=== PATIENT | male | born 1970 | race Caucasian/White ===

== ENCOUNTER 2022-12-03 17:35 | Emergency (ER) | payer OTHER, SELFPAY ==
[2022-12-03 17:36] VITALS: BP 173/98; PULSE 88; RESP 17; TEMP 36.6; O2SAT 92; BMI 30.7
--- NOTE | 2022-12-03 17:52 | CTR_ITS ---
PROCEDURE INFORMATION: Exam: CT Head Without Contrast Exam date and time: 12/03/2022 6:39 PM Age: 52 years old Clinical indication: Stroke-like symptoms; Dizziness/giddiness; Additional info: Neck pain, dizziness TECHNIQUE: Imaging protocol: Computed tomography of the head without contrast. Radiation optimization: All CT scans at this facility use at least one of these dose optimization techniques: automated exposure control; mA and/or kV adjustment per patient size (includes targeted exams where dose is matched to clinical indication); or iterative reconstruction. Other technique: STROKE PROTOCOL was implemented. REPORTING DATA: Count of CT and Cardiac NM exams in prior 12 months: This patient has received 0 known CTs and 0 known cardiac nuclear medicine studies in the 12 months prior to the current study. COMPARISON: No relevant prior studies available. RADIATION DOSE METRICS: Total DLP (mGy-cm): 1393 FINDINGS: Brain: Mild diffuse cortical volume loss. Mild hypodensities in supratentorial periventricular and subcortical white matter, consistent with microangiopathy. No intracranial hemorrhage. Cerebral ventricles: No ventriculomegaly. Paranasal sinuses: Visualized sinuses are unremarkable. No fluid levels. Mastoid air cells: Visualized mastoid air cells are well aerated. Bones/joints: Unremarkable. No acute fracture. Soft tissues: Unremarkable. Vasculature: No hyperdense artery. CT/CT head wo con* [id number] IMPRESSION: No acute intracranial abnormality. ASSESSMENT: ASPECTS ([place] [facility] Stroke Program Early CT Score) is 10.
--- NOTE | 2022-12-03 17:55 | ECG_ITS ---
[facility] Test Date: 2022-12-03 Pat Name: Sreekanth Madden Department: Room: Gender: Male Social Work Supervisor: : 1970 Requested By: Vikas Gonzalez Order Number: [id number] Monica MD: Kayla Castellanos M.D. Measurements Intervals [place] Rate: 83 P: 39 LA: 151 QRS: 11 QRSD: 110 T: 34 QT: 375 QTc: 443 Interpretive Statements SINUS RHYTHM No previous ECG available for comparison Electronically Signed On 12-04-2022 8:00:53 CDT by Kayla Castellanos M.D. [id number]
[2022-12-03 18:06] LABS: Glucose Point of Care 250 mg/dL (70-110)
[2022-12-03 18:12] VITALS: BP 161/94; PULSE 84; RESP 21; O2SAT 93
[2022-12-03 18:28] LABS: Add Urine Culture? Yes; Add Urine Microscopic? YES; Amphetamines Screen Urine Negative (Negative); Bacteria Urine 3+ /hpf; Barbiturates Screen Urine Negative (Negative); Benzodiazepines Screen Urine Negative (Negative); Bilirubin Urine Neg (Negative); Blood Urine Neg (Negative); Cocaine Screen Urine Negative (Negative); Glucose Urine UA 4+ (Normal); Ketones Urine Negative (Negative); Leukocyte Esterase Urine Negative (Negative); Nitrate Urine Negative (Negative); Opiate Screen Urine Negative (Negative); PCP Screen Urine Negative (Negative); Protein Urine Neg (Negative); RBC Urine 0-4 /hpf (0-2); Squamous Epithelial Cell Urine 0-4 /hpf (0-5); Sulfosalicylic Acid Urine Negative (Negative); THC Screen Urine Negative (Negative); Urine Appearance Hazy (CLEAR); Urine Color Yellow (Yellow); Urobilinogen Urine Norm (Negative); WBC Urine 0-4 /hpf (0-5); pH Urine 8 (5-7)
[2022-12-03 18:35] LABS: Basophils # 0.1 10^3/uL (0.0-0.1); Basophils % 1.5 %; Eosinophils # 0.7 10^3/uL (0.0-0.8); Eosinophils % 7.7 %; Hematocrit 39.2 % (37-53); Lymphocytes # 3.5 10^3/uL (0.8-4.8); Mean Corpuscular HGB Conc 35.2 g/dL (30-55); Mean Corpuscular Hemoglobin 32.2 pg (27-33); Mean Corpuscular Volume 91.6 fl (82-101); Mean Platelet Volume 10.3 fL (7.4-10.4); Monocytes # 1.1 10^3/uL (0.2-0.9); Monocytes % 12.6 %; Neutrophils # 3.45 10^3/uL (1.8-7.7); Neutrophils % 38.6 %; Nucleated Red Blood Cells % 0 %; Platelet Count 308 10^3/cmm (157-399); Red Blood Count 4.28 10^6/uL (3.85-5.65); Red Cell Distribution Width 12.8 % (12.1-15.1); White Blood Count 8.92 10^3/uL (3.29-11.43)
[2022-12-03 18:41] LABS: INR 0.86 (0.8-1.2)
--- NOTE | 2022-12-03 18:41 | W.ED.DIZZY ---
HPI - Dizziness General: Chief Complaint: Dizziness Stated Complaint: N/V Time Seen by Provider: 12/03/22 17:37 History of Present Illness: HPI Narrative: 52-year-old male gentleman with a history of hypertension. [place]. He presents with a history of an hour prior to arrival onset of sharp searing pain to the base of his head posteriorly. He says this lasted about 3 minutes, and was quite intense. It is now only a dull ache. However after the pain subsided, he began to get quite dizzy. It is a vertiginous type dizziness. He states with it when he stood up, he began to vomit profusely. He vomited several times prior to EMS arrival. He has not been ill otherwise recently. Associated symptoms: Reports headache(s), nausea and vomiting; Denies chest pain, chills or palpitations Associated neuro symptoms: Deny confusion Review of Systems Const: Denies: fever(s), chills or body aches Eyes: Denies: change in vision Card: Denies: chest pain or palpitations Resp: Denies: dyspnea, productive cough, non-productive cough or wheezing GI: Reports: nausea and vomiting; Denies: abdominal pain, diarrhea or hematochezia Skin/Breast: Denies: rash Neuro: Reports: headache(s), dizziness and vertigo; Denies: weakness in extremities, sensory changes, confusion, Slurred speech present or difficulty communicating thoughts Physical Exam Const: GENERAL APPEARANCE: cooperative and ill appearing; not frail appearing HENMT: COMMON NORMALS: normocephalic, atraumatic and Normal external nose present HEAD & SCALP: normocephalic and atraumatic FACE & SINUS: normal facial exam and face symmetric NOSE: Normal external nose present Eye: COMMON NORMALS: Equal, round and reactive pupils present and EOMs intact bilaterally PUPIL: Yes Equal, round and reactive pupils present Neck/C-Spine: GENERAL: Yes trachea midline Chest: CHEST: Yes Symmetrical chest wall rise Resp: COMMON NORMALS: normal respiratory effort, No retractions, No use of accessory muscles and clear to auscultation bilaterally AUSCULTATION: clear to auscultation bilaterally Cardio: COMMON NORMALS: regular rate and regular rhythm RATE: regular rate RHYTHM: regular rhythm GI: COMMON NORMALS: Normal to inspection, nondistended, normoactive bowel sounds present Extremity: COMMON NORMALS: no pedal edema Neuro: ALICE COMA SCALE: document GCS findings [place] coma scale eye opening: Spontaneous [place] coma scale verbal response: Orientated [place] coma scale motor response: Obey commands [place] coma scale total score: 15 CRANIAL NERVES: Yes CN normal except as noted COORDINATION/BALANCE: iccwby-ji-[id number] test normal and rner-lf-kavt test normal SPEECH: speech normal SENSORY EXAM: Yes extremities (intact) MOTOR EXAM: Pronator motor function not present and no tremor noted COORDINATION: iafukl-hh-rqlr test normal and hfuj-jk-uani test normal Psych: COMMON NORMALS: speech normal SPEECH: Yes normal speech Skin: COMMON NORMALS: no rashes or lesions noted GENERAL SKIN EXAM: no rashes or lesions noted Course Vital Signs: Vital signs: Vital Signs Temperature 97.9 F 12/03/22 17:36 Pulse Rate 83 12/03/22 20:04 Respiratory Rate 20 H 12/03/22 20:04 Blood Pressure 144/86 12/03/22 20:04 Pulse Oximetry 94 12/03/22 20:04 Oxygen Delivery Me thod Room Air 12/03/22 19:00 MDM - Dizziness Medical Decision Making Patient presents with sudden onset head/neck pain, and dizziness. Exam findings are concerning for something such as a vertebral artery dissection, although cerebral hemorrhage could cause similar presentation. His NIH stroke scale is a 0. He has no other neurological involvement. No vision changes, language problems, weakness, numbness, etc. I spoke with our neurologist. CTA was suggested after noncontrast CT, but the patient has severe contrast allergy, requiring resuscitation on 2 separate episodes. We have no availability of MRI at this facility. Awaiting official results for noncontrast CT head. Patient has received 4 morphine and 4 Zofran for pain and nausea. His blood pressure is currently 158 systolic. I was able to speak with our counterparts at [facility] in [facility]. They are willing to take in transfer for further imaging. We are especially worried about vertebral artery dissection. Non contrast head CT was read as normal. He is stable for transfer currently. Lab Data 12/03/22 18:00 12/03/22 18:[address] 12/03/22 17:52 IMPRESSION: No acute intracranial abnormality. ASSESSMENT: ASPECTS ([place] Stroke Program Early CT Score) is 10. Laboratory Results WBC 8.92 10^3/uL (3.29-11.43) 12/03/22 18:00 RBC 4.28 10^6/uL (3.85-5.65) 12/03/22 18:00 Hgb 13.80 g/dL (11.27-16.99) 12/03/22 18:00 Hct 39.2 % (37-53) 12/03/22 18:00 MCV 91.6 fl (82-101) 12/03/22 18:00 MCH 32.2 pg (27-33) 12/03/22 18:00 MCHC 35.2 g/dL (30-55) 12/03/22 18:00 RDW 12.8 % (12.1-15.1) 12/03/22 18:00 Plt Count 308 10^3/cmm (157-399) 12/03/22 18:00 MPV 10.3 fL (7.4-10.4) 12/03/22 18:00 Neut % (Auto) 38.6 % 12/03/22 18:00 Lymph % (Auto) 39.0 % 12/03/22 18:00 [place] % (Auto) 12.6 % 12/03/22 18:00 Eos % (Auto) 7.7 % 12/03/22 18:00 Baso % (Auto) 1.5 % 12/03/22 18:00 Neut # (Auto) 3.45 10^3/uL (1.8-7.7) 12/03/22 18:00 Lymph # (Auto) 3.5 10^3/uL (0.8-4.8) 12/03/22 18:00 [place] # (Auto) 1.1 10^3/uL (0.2-0.9) H 12/03/22 18:00 Eos # (Auto) 0.7 10^3/uL (0.0-0.8) 12/03/22 18:00 Baso # (Auto) 0.1 10^3/uL (0.0-0.1) 12/03/22 18:00 Nucleated RBC % (auto) 0 % 12/03/22 18:00 Nucleated RBCs # 0.0 /100WBC 12/03/22 18:00 PT 12.00 SECONDS (12.1-14.9) L 12/03/22 18:00 INR 0.86 (0.8-1.2) 12/03/22 18:00 APTT 22.9 SECONDS (23.9-36.7) L 12/03/22 18:00 Sodium 138 mmol/L (136-145) 12/03/22 18:00 Potassium 3.6 mmol/L (3.5-5.1) 12/03/22 18:00 Chloride 96 mmol/L (98-107) L 12/03/22 18:00 Carbon Dioxide 29 mmol/L (22-29) 12/03/22 18:00 Anion Gap 16.6 (5-19) 12/03/22 18:00 BUN 16 mg/dL (6-20) 12/03/22 18:00 Creatinine 1.2 mg/dL (0.7-1.2) 12/03/22 18:00 GFR Calculation 63.1 mL/min (90-130) L 12/03/22 18:00 Glucose 259 mg/dL (65-115) H 12/03/22 18:00 POC Glucose 250 mg/dL (70-110) H 12/03/22 18:03 Calculated Osmolality 296 mOsm/kg (285-295) H 12/03/22 18:00 Calcium 10.0 mg/dL (8.5-10.5) 12/03/22 18:00 Total Bilirubin 0.3 mg/dL (0.15-1.2) 12/03/22 18:00 AST 25 U/L (0-40) 12/03/22 18:00 ALT 31 U/L (0-41) 12/03/22 18:00 Alkaline Phosphatase 48 U/L (40-130) 12/03/22 18:00 Total Protein 8.3 g/dL (6.6-8.7) 12/03/22 18:00 Albumin 5.1 g/dL (3.5-5.2) 12/03/22 18:00 Globulin 3.2 g/dL (1.3-4.6) 12/03/22 18:00 Urine Color Yellow (Yellow) 12/03/22 18:01 Urine Appearance Hazy (CLEAR) A 12/03/22 18:01 Urine pH 8 (5-7) H 12/03/22 18:01 Ur Specific [place] 1.010 (1.005-1.030) 12/03/22 18:01 Urine Protein Neg (Negative) 12/03/22 18:01 Urine Glucose (UA) 4+ (Normal) H 12/03/22 18:01 Urine Ketones Negative (Negative) 12/03/22 18:01 Urine Blood Neg (Negative) 12/03/22 18:01 Urine Nitrate Negative (Negative) 12/03/22 18:01 Urine Bilirubin Neg (Negative) 12/03/22 18:01 Prot Sulfosalicylic Acd Negative (Negative) 12/03/22 18:01 Urine Urobilinogen Norm mg/dL (Negative) 12/03/22 18:01 Ur Leukocyte Esterase Negative (Negative) 12/03/22 18:01 Urine RBC 0-4 /hpf (0-2) H 12/03/22 18:01 Urine WBC 0-4 /hpf (0-5) H 12/03/22 18:01 Ur Squamous Epith Cells 0-4 /hpf (0-5) H 12/03/22 18:01 Amorphous Sediment Not Reportable 12/03/22 18:01 Urine Bacteria 3+ /hpf (NONE) H 12/03/22 18:01 Urine Opiates Screen Negative ng/mL (Negative) 12/03/22 18:01 Ur Barbiturates Screen Negative ng/mL (Negative) 12/03/22 18:01 Ur Phencyclidine Scrn Negative ng/mL (Negative) 12/03/22 18:01 Ur Amphetamines Screen Negative ng/mL (Negative) 12/03/22 18:01 U Benzodiazepines Scrn Negative ng/mL (Negative) 12/03/22 18:01 Urine Cocaine Screen Negative ng/mL (Negative) 12/03/22 18:01 U Marijuana (THC) Screen Negative ng/mL (Negative) 12/03/22 18:01 Ethyl Alcohol < 10 mg/dL (0-10) 12/03/22 18:00 All radiology interpretation(s) finalized by discharge Discharge Plan Discharge Patient Disposition: Transfer to ED Clinical Impression: Dizziness, Acute neck pain Condition: Stable Coding Level of Care Code ED Tearoom Hostess for Carmel Patten NIH stroke score NIHSS Level Of Consciousness - 1a: 0 Level Of Consciousness Questions - 1b: Both Correct Level Of Consciousness Commands - 1c: Both Correct Best Gaze - 2: Normal Visual Reveles - 3: No Visual Loss Facial Palsy - 4: Normal Motor Arm Right - 5: No Drift Motor Arm Left - 5: No Drift Motor Leg Right - 6: No Drift Motor Leg Left - 6: No Drift Limb Ataxia - 7: Absent Sensory - 8: Normal Best Language - 9: No Aphasia Dysarthia - 10: Normal Extinction And Inattention - 11: 0 Score Total Score: 0
[2022-12-03 18:42] LABS: Partial Thromboplastin Time 22.9 SECONDS (23.9-36.7)
[2022-12-03 18:49] LABS: Alanine Aminotransferase 31 U/L (0-41); Albumin Level 5.1 g/dL (3.5-5.2); Alkaline Phosphatase 48 U/L (40-130); Anion Gap 16.6 (5-19); Aspartate Amino Transferase 25 U/L (0-40); Blood Urea Nitrogen 16 mg/dL (6-20); Carbon Dioxide 29 mmol/L (22-29); Chloride 96 mmol/L (98-107); Globulin 3.2 g/dL (1.3-4.6); Glomerular Filtration Rate 63.1 mL/min (90-130); Glucose 259 mg/dL (65-115); Osmolality Calculated 296 mOsm/kg (285-295); Potassium 3.6 mmol/L (3.5-5.1); Sodium 138 mmol/L (136-145); Total Bilirubin 0.3 mg/dL (0.15-1.2); Total Protein 8.3 g/dL (6.6-8.7)
[2022-12-03 18:50] LABS: Alcohol Level < 10 mg/dL (0-10)
[2022-12-03 19:00] VITALS: BP 149/88; PULSE 84; RESP 16; O2SAT 96
[2022-12-03] MEDS: ondansetron 2 mg/ML SDV 2 mL 4 MG IVP (19:49)
[2022-12-03 19:50] VITALS: RESP 20
[2022-12-03] MEDS: morphine 4 mg/mL SDV 1 mL IVP (19:50)
[2022-12-03 20:04] VITALS: BP 144/86; PULSE 83; RESP 20; O2SAT 94
== END 2022-12-03 20:07 ==
PROVIDERS: Emergency Provider Emergency Medicine
DX: R42 Dizziness and giddiness (principal); M54.2 Cervicalgia
CPT/HCPCS: 36416; 70450; 80053; 80306; 80307; 81001; 82962; 85025; 85610; 85730; 87086; 93005; 96374; 96375; 99285; 99291; J2270; J2405